=== PATIENT | male | born 1980 | race Caucasian/White ===

== ENCOUNTER 2018-04-12 10:53 | Emergency (ER) | payer OTHER ==
[2018-04-12 11:03] VITALS: BP 121/88; PULSE 68; RESP 20; TEMP 98.3; O2SAT 100
[2018-04-12] MEDS ORDERED: Lidocaine 4% (Laryng-O-Jet) Kit MM STA (11:18)
[2018-04-12] MEDS ORDERED: Phenylephrine 1% Nasal Spray (15 ml) NAS STA (11:18)
[2018-04-12] MEDS ORDERED: Phenylephrine 1% Nasal Spray (15 ml) ONE (12:06)
[2018-04-12] MEDS ORDERED: Lidocaine 4% (Laryng-O-Jet) Kit MM ONE (12:06)
[2018-04-12] MEDS ORDERED: Silver Nitrate Topical - Stick TOP ONE (12:19)
--- NOTE | 2018-04-12 12:19 | C.PDOC ---
History Of Present Illness 38 y/o male pt presents to the ER c/o nose bleed. Pt reports he placed an ice pack with no relief. Pt denies trauma, nose picking, fever, chills or any other complaints or associated sx. Time Seen by Provider: 04/12/18 11:16 Chief Complaint (Nursing): ENT Problem History Per: Patient History/Exam Limitations: None Onset/Duration Of Symptoms: Hrs Current Symptoms Are (Timing): Still Present Past Medical History Reviewed: Historical Data, Nursing Documentation, Vital Signs Vital Signs: Last Vital Signs Temp 98.3 F 04/12/18 11:01 Pulse 68 04/12/18 11:01 Resp 20 04/12/18 11:01 BP 121/88 04/12/18 11:01 Pulse Ox 100 04/12/18 11:01 Family History: States: No Known Family Hx - Social History Hx Alcohol Use: Yes Hx Substance Use: No - Immunization History Hx Tetanus Toxoid Vaccination: No Hx Influenza Vaccination: No Hx Pneumococcal Vaccination: No Review Of Systems Except As Marked, All Systems Reviewed And Found Negative. ENT: Positive for: Other (nose bleed) Physical Exam - Physical Exam Appears: Non-toxic, No Acute Distress Skin: Normal Color, Warm, Dry Head: Atraumatic, Normacephalic Eye(s): bilateral: Normal Inspection, PERRL, EOMI Nose: Epistaxis (left anterior nostril) Oral Mucosa: Moist Throat: Normal Chest: Symmetrical Cardiovascular: Rhythm Regular Respiratory: Normal Breath Sounds, No Rales, No Rhonchi, No Wheezing Gastrointestinal/Abdominal: Normal Exam, Soft, No Tenderness Neurological/Psych: Oriented x3, Normal Speech ED Course And Treatment O2 Sat by Pulse Oximetry: 100 (RA) Pulse Ox Interpretation: Normal Medical Decision Making Medical Decision Making: Assessment: nose bleed Plans: -- lidocaine -- melony-synepherine procedure: melony-synepherine and lidocaine impregnated gauze placed. Rapid rhino p laced in right nostril. Pt was advise to have packing for 2 days and to come back if sx persist. Hemostasis achieved. Disposition Counseled Patient/Family Regarding: Studies Performed, Diagnosis, Need For Followup - Disposition Disposition: HOME/ ROUTINE Disposition Time: 12:46 Condition: STABLE Additional Instructions: follow up with your doctor within 2 days call to make an appointment return to ER if symptoms worsens or progress Instructions: Nosebleeds (DC) Forms: [facility] (Moroccan), General Discharge Instructions - Clinical Impression Clinical Impression: Epistaxis - Scribe Statement The provider has reviewed the documentation as recorded by the Scribe Lindsay Do Provider Attestation: All medical record entries made by the Scribe were at my direction and personally dictated by me. I have reviewed the chart and agree that the record accurately reflects my personal performance of the history, physical exam, medical decision making, and the department course for this patient. I have also personally directed, reviewed, and agree with the discharge instructions and disposition.
[2018-04-12] MEDS ORDERED: Silver Nitrate Topical - Stick ONE (12:26)
== END 2018-04-12 13:08 | disposition home or self-care (01) ==
LOC: C.ER 10:53
DX: R04.0 Epistaxis (principal)

== ENCOUNTER → 2018-04-12 14:08 | Emergency (ER) | payer SELFPAY | END | disposition left against medical advice (07) | LOC: C.ER 14:08 | DX: Z02.89 Encounter for other administrative examinations (principal); R04.0 Epistaxis ==